=== PATIENT | male | born 1990 | race Two or more races ===

== ENCOUNTER 2020-02-01 11:32 | Emergency (ER) | payer OTHER ==
[~2020-02-01] VITALS: Ht 165.1 cm; Wt 72.6 kg
[2020-02-01 11:43] VITALS: BP 141/96
--- NOTE | 2020-02-01 11:43 | NUR ---
ED Nurse Note: PT walked in to ed for c/o abd pain with nausea and vomiting x 3 days. pt also reports having "panick attack".
[2020-02-01] MEDS ORDERED: Ketorolac 30mg Inj IV ONE (12:15)
[2020-02-01] MEDS ORDERED: LORazepam Inj 2mg/ml 1ml IV ONE (12:15)
--- NOTE | 2020-02-01 12:15 | NUR ---
ED Nurse Note: urine and blood sample collected and sent to lab
--- NOTE | 2020-02-01 12:22 | NUR ---
ED Nurse Note: All due medication given, pt tolerated well. will continue to monitor.
[2020-02-01 12:49] LABS: BASOPHILS % (AUTO) 1.1 % (0.0-2.0); EOSINOPHILS % (AUTO) 1.3 % (0.0-3.0); HEMATOCRIT 47.1 % (42.0-52.0); HEMOGLOBIN 15.9 G/DL (14.2-18.0); LYMPHOCYTES % (AUTO) 33.6 % (20.0-45.0); MEAN CORPUSCULAR VOLUME 98 FL (80-99); MONOCYTES % (AUTO) 12.2 % (1.0-10.0); NEUTROPHILS % (AUTO) 51.8 % (45.0-75.0); PLATELET COUNT 367 K/UL (150-450); RED BLOOD COUNT 4.83 M/UL (4.70-6.10); RED CELL DISTRIBUTION WIDTH 13.4 % (11.6-14.8); WHITE BLOOD COUNT 6.7 K/UL (4.8-10.8)
[2020-02-01 12:51] LABS: APPEARANCE,URINE CLEAR; BILIRUBIN, URINE NEGATIVE (NEGATIVE); COLOR,URINE PALE YELLOW; GLUCOSE, URINE (UA) NEGATIVE (NEGATIVE); KETONES,URINE NEGATIVE (NEGATIVE); LEUKOCYTE ESTERASE ,URINE NEGATIVE (NEGATIVE); NITRITE,URINE NEGATIVE (NEGATIVE); PH,URINE 6.5 (4.5-8.0); PROTEIN,URINE NEGATIVE (NEGATIVE); UROBILINOGEN,URINE NORMAL MG/DL (0.0-1.0)
[2020-02-01 13:11] LABS: ANION GAP 9 mmol/L (5-15); BLOOD UREA NITROGEN 12 mg/dL (7-18); CALCIUM 9.4 MG/DL (8.5-10.1); CARBON DIOXIDE 29 MMOL/L (21-32); CHLORIDE 98 MMOL/L (98-107); CREATININE 1.2 MG/DL (0.55-1.30); POTASSIUM 3.9 MMOL/L (3.5-5.1); SODIUM 136 MMOL/L (136-145)
[2020-02-01 13:15] LABS: ALANINE AMINOTRANSFERASE 22 U/L (12-78); ALBUMIN 4.6 G/DL (3.4-5.0); ALBUMIN/GLOBULIN RATIO 1.5 (1.0-2.7); ALKALINE PHOSPHATASE 77 U/L (46-116); ASPARTATE AMINO TRANSFERASE 28 U/L (15-37); BILIRUBIN,TOTAL 0.5 MG/DL (0.2-1.0)
[2020-02-01] MEDS ORDERED: ATIVAN1 MG ORAL (14:04)
[2020-02-01] MEDS ORDERED: FAMOTIDINE20 MG ORAL (14:04)
[2020-02-01] MEDS ORDERED: ONDANSETRON ODT4 MG BC (14:04)
[2020-02-01 14:09] VITALS: BP 130/84
--- NOTE | 2020-02-01 14:09 | NUR ---
ER DISCHARGE NOTE: Patient is cleared to be discharged per ERMD, pt is aox4, on room air, with stable vital signs. pt was given dc and prescription instructions, pt was able to verbalize understanding, pt id band and iv site removed without complications. pt is able to ambulate with steady gait. pt took all belongings.
--- NOTE | 2020-02-01 14:57 | Emergency Room Report ---
History of Present Illness General Chief Complaint: Abdominal Pain Source: Patient Present Illness HPI 29-year-old male presents ED for evaluation. Any of abdominal pain for the last 3 days. Epigastric, sharp, 7 out of 10, nonradiating. Denies chest pain or shortness of breath. States he also feels anxious. 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 States his last use was about 1 month ago. No other aggravating relieving factors. 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 Patient History Past Medical History: none Past Surgical History: none Pertinent Family History: none Social History: Denies: smoking, alcohol use, drug use Immunizations: UTD Reviewed Nursing Documentation: PMH: Agreed; PSxH: Agreed Review of Systems All Other Systems: negative except mentioned in HPI Physical Exam Vital Signs Date Time Temp Pulse Resp B/P (MAP) Pulse Ox O2 Delivery O2 Flow Rate FiO2 02/01/20 11:38 98.4 68 19 141/96 (111) 98 Room Air Sp02 EP Interpretation: reviewed, normal General Appearance: alert, GCS 15, non-toxic, mild distress Head: normocephalic, atraumatic Eyes: bilateral eye normal inspection, bilateral eye PERRL ENT: hearing grossly normal, normal pharynx, no angioedema, normal voice Neck: full range of motion, supple/symm/no masses Respiratory: chest non-tender, lungs clear, normal breath sounds, speaking full sentences Cardiovascular #1: regular rate, rhythm, no edema Cardiovascular #2: 2+ carotid (R), 2+ carotid (L), 2+ radial (R), 2+ radial (L), 2+ dorsalis pedis (R), 2+ dorsalis pedis (L) Gastrointestinal: normal bowel sounds, soft, non-distended, no guarding, no rebound, tenderness Rectal: deferred Genitourinary: normal inspection, no CVA tenderness Musculoskeletal: back normal, normal range of motion, gait/station normal, non- tender Neurologic: alert, motor strength/tone normal, oriented x3, sensory intact, responsive, speech normal Psychiatric: judgement/insight normal, memory normal, mood/affect normal, no suicidal/homicidal ideation Reflexes: 3+ bicep (R), 3+ bicep (L), 3+ tricep (R), 3+ tricep (L), 3+ knee (R), 3+ knee (L) Skin: no rash Lymphatic: no adenopathy Medical Decision Making Diagnostic Impression: Primary Impression: Gastritis Qualified Codes: K29.00 - Acute gastritis without bleeding Additional Impression: Anxiety ER Course Hospital Course 29-year-old M presents to ED with epigastric pain with N/V. differential diagnosis: gastritis, SBO, cholecystits Clinical course Patient placed on stretcher. On bus driver/monitor. After initial history and physical I ordered labs, IV fluids, Pepcid, Zofran, Ativan Labs - no leukocytosis, no electrolyte abnormalities, LFTs normal, On reassessment patient states he feels better. Discussed findings with patient. Patient had been prescribed Wellbutrin and trazodone. I will prescribe low-dose Ativan for a few days. Safe for discharge close outpatient follow-up. I will provide referrals I feel this is a highly complex case requiring extensive working including EKG/Rhythm strip, Xray/CT/US, Blood/urine lab work, repeat exams while in ED, and administration of strong opiates/narcotics for pain control, admission to hospital or close patient follow up. Diagnosis - gastritis, anxiety Stable and discharged to home with prescriptions for Pepcid, Zofran, Ativan. Followup with PMD. Return to ED if symptoms recur or worsen Laboratory Tests Test 02/01/20 12:10 White Blood Count 6.7 K/UL (4.8-10.8) Red Blood Count 4.83 M/UL (4.70-6.10) Hemoglobin 15.9 G/DL (14.2-18.0) Hematocrit 47.1 % (42.0-52.0) Mean Corpuscular Volume 98 FL (80-99) Mean Corpuscular Hemoglobin 32.9 PG (27.0-31.0) H Mean Corpuscular Hemoglobin Concent 33.7 G/DL (32.0-36.0) Red Cell Distribution Width 13.4 % (11.6-14.8) Platelet Count 367 K/UL (150-450) Mean Platelet Volume 7.0 FL (6.5-10.1) Neutrophils (%) (Auto) 51.8 % (45.0-75.0) Lymphocytes (%) (Auto) 33.6 % (20.0-45.0) Monocytes (%) (Auto) 12.2 % (1.0-10.0) H Eosinophils (%) (Auto) 1.3 % (0.0-3.0) Basophils (%) (Auto) 1.1 % (0.0-2.0) Urine Color Pale yellow Urine Appearance Clear Urine pH 6.5 (4.5-8.0) Urine Specific [place] 1.005 (1.005-1.035) Urine Protein Negative (NEGATIVE) Urine Glucose (UA) Negative (NEGATIVE) Urine Ketones Negative (NEGATIVE) Urine Blood Negative (NEGATIVE) Urine Nitrite Negative (NEGATIVE) Urine Bilirubin Negative (NEGATIVE) Urine Urobilinogen Normal MG/DL (0.0-1.0) Urine Leukocyte Esterase Negative (NEGATIVE) Sodium Level 136 MMOL/L (136-145) Potassium Level 3.9 MMOL/L (3.5-5.1) Chloride Level 98 MMOL/L (98-107) Carbon Dioxide Level 29 MMOL/L (21-32) Anion Gap 9 mmol/L (5-15) Blood Urea Nitrogen 12 mg/dL (7-18) Creatinine 1.2 MG/DL (0.55-1.30) Estimat Glomerular Filtration Rate > 60 mL/min (>60) Glucose Level 92 MG/DL (74-106) Calcium Level 9.4 MG/DL (8.5-10.1) Total Bilirubin 0.5 MG/DL (0.2-1.0) Aspartate Amino Transf (AST/SGOT) 28 U/L (15-37) Alanine Aminotransferase (ALT/SGPT) 22 U/L (12-78) Alkaline Phosphatase 77 U/L (46-116) Total Protein 7.7 G/DL (6.4-8.2) Albumin 4.6 G/DL (3.4-5.0) Globulin 3.1 g/dL Albumin/Globulin Ratio 1.5 (1.0-2.7) Lipase 114 U/L (73-393) Last Vital Signs Date Time Temp Pulse Resp B/P (MAP) Pulse Ox O2 Delivery O2 Flow Rate FiO2 02/01/20 14:09 98.0 76 18 130/84 99 Room Air Status: improved Disposition: HOME, SELF-CARE Condition: Stable Scripts Lorazepam* (ATIVAN*) 1 Mg Tablet 1 MG ORAL THREE TIMES A DAY, #10 TAB Prov: Luis Antonio Cervantes MD 02/01/20 Ondansetron Odt* (ZOFRAN ODT*) 4 Mg Tab.rapdis 4 MG BC EVERY 6 HOURS PRN for Nausea & Vomiting, #10 TAB 0 Refills Prov: Luis Antonio Cervantes MD 02/01/20 Famotidine* (Pepcid 20mg tablet*) 20 Mg Tablet 20 MG ORAL DAILY for Gerd, #30 TAB 0 Refills Prov: Luis Antonio Cervantes MD 02/01/20 Referrals: NON PHYSICIAN (PCP) [facility] Patient Instructions: Gastritis, Adult, [id number] Luis Antonio Cervantes MD Feb 01, 2020 14:56
== END 2020-02-01 14:09 | disposition home or self-care (01) ==
LOC: EMR 12:18
DX: K29.00 Acute gastritis without bleeding (principal); F41.9 Anxiety disorder, unspecified
CPT/HCPCS: 36415; 80053; 81003; 83690; 85025; 96361; 96374; 96375; J1885; J2405; J7030; S0028; Z7502; 99284

== ENCOUNTER 2020-03-22 11:26 | Emergency (ER) | payer OTHER ==
[~2020-03-22] VITALS: Ht 165.1 cm; Wt 74.4 kg
[~2020-03-22 11:26] MED LIST: ATIVAN1 MG ORAL; FAMOTIDINE20 MG ORAL; ONDANSETRON ODT4 MG BC
[2020-03-22 11:45] VITALS: BP 123/80
[2020-03-22] MEDS ORDERED: Mylanta II UD 30ml ORAL ONE (11:45)
[2020-03-22] MEDS ORDERED: Dicyclomine HCl 10mg/5ml oral soln ORAL ONE (11:45)
[2020-03-22] MEDS ORDERED: Lidocaine 2% Visc 15ml soln ORAL ONE (11:45)
--- NOTE | 2020-03-22 11:45 | NUR ---
ED Nurse Note: Pt walked into ED for upper abominal pain 6/10 and diarrhea for 70 days. He also has nausea but no vomiting. He is alert amnd orientedx4, ambulatory. IV established and blood sent to lab. Urine sent.
--- NOTE | 2020-03-22 12:02 | Emergency Room Report ---
History of Present Illness General Chief Complaint: Abdominal Pain Source: Patient Present Illness HPI Disclaimer: Please note that this report is being documented using [employer] technology. This can lead to erroneous entry secondary to incorrect interpretation by the dictating instrument. HPI: 29-year-old male presents for evaluation of abdominal pain. History of gastritis. Reports 2 months of persistent abdominal pain and cramping. Sometimes worse with eating sometimes better. Denies fever, chills, vomiting, diarrhea. He reports nausea. History of alcohol abuse but in remission. He uses Motrin daily. Appointment to see his environmental resource specialist next week for evaluation of possible ulcers. Does not currently take antacids. Using only Maalox for symptomatic relief. Denies chest pain, palpitations, shortness of breath, cough, URI symptoms, fever or chills. 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 EOMI. Cardiovascular: RRR. S1 and S2 normal. No murmur appreciated Resp: Normal work of breathing. No cough, wheezing or crackles appreciated Abdomen: Abdomen is soft, nondistended. Mild tenderness in the epigastrium. No guarding, no rebound. No tenderness in left or right upper quadrants or in the lower abdomen. Skin: Intact. No abrasions, laceration or rash over the exposed skin MSK: Normal tone and bulk. Moving all extremities. No obvious deformity. Neuro: Awake and alert. Mentating appropriately. Medical Decision Making Diagnostic Impression: Primary Impression: Gastritis ER Course 29-year-old male presents for evaluation of abdominal pain. Differential includes was not limited to gastritis, gastroenteritis, pancreatitis, cholecystitis, peptic ulcer disease, duodenal ulcer among others. Given the patient's history of alcohol abuse and daily NSAID use suspect gastritis. Labs were obtained have returned within normal limits. No major electrolyte abnormalities, renal function is within normal limits, no evidence of urinary tract infection and lipase is within normal limits. No evidence of pancreatitis. Belly remains soft; no indication for advanced imaging at this time. Patient feeling better after receiving a GI cocktail and IV Pepcid. He has been prescribed Pepcid in the past. We will continue this however will add omeprazole and the patient will be referred to his environmental resource specialist at his s tanding appointment next week for further evaluation and management. Otherwise well-appearing and stable for outpatient follow-up. Instructed to not use Motrin any longer. Discussed reasons to return to the ER. He understands and agrees with this treatment plan. Laboratory Tests Test 03/22/20 11:45 White Blood Count 7.1 K/UL (4.8-10.8) Red Blood Count 4.89 M/UL (4.70-6.10) Hemoglobin 16.2 G/DL (14.2-18.0) Hematocrit 44.8 % (42.0-52.0) Mean Corpuscular Volume 92 FL (80-99) Mean Corpuscular Hemoglobin 33.1 PG (27.0-31.0) H Mean Corpuscular Hemoglobin Concent 36.1 G/DL (32.0-36.0) H Red Cell Distribution Width 14.4 % (11.6-14.8) Platelet Count 357 K/UL (150-450) Mean Platelet Volume 6.8 FL (6.5-10.1) Neutrophils (%) (Auto) 42.4 % (45.0-75.0) L Lymphocytes (%) (Auto) 43.4 % (20.0-45.0) Monocytes (%) (Auto) 10.3 % (1.0-10.0) H Eosinophils (%) (Auto) 2.6 % (0.0-3.0) Basophils (%) (Auto) 1.4 % (0.0-2.0) Urine Color Pale yellow Urine Appearance Clear Urine pH 5 (4.5-8.0) Urine Specific [place] 1.015 (1.005-1.035) Urine Protein Negative (NEGATIVE) Urine Glucose (UA) Negative (NEGATIVE) Urine Ketones Negative (NEGATIVE) Urine Blood Negative (NEGATIVE) Urine Nitrite Negative (NEGATIVE) Urine Bilirubin Negative (NEGATIVE) Urine Urobilinogen Normal MG/DL (0.0-1.0) Urine Leukocyte Esterase Negative (NEGATIVE) Sodium Level 138 MMOL/L (136-145) Potassium Level 4.0 MMOL/L (3.5-5.1) Chloride Level 101 MMOL/L (98-107) Carbon Dioxide Level 29 MMOL/L (21-32) Anion Gap 8 mmol/L (5-15) Blood Urea Nitrogen 15 mg/dL (7-18) Creatinine 1.0 MG/DL (0.55-1.30) Estimated Glomerular Filtration Rate > 60 mL/min (>60) Glucose Level 68 MG/DL (74-106) L Calcium Level 8.8 MG/DL (8.5-10.1) Total Bilirubin 0.3 MG/DL (0.2-1.0) Aspartate Amino Transferase (AST) 23 U/L (15-37) Alanine Aminotransferase (ALT) 20 U/L (12-78) Alkaline Phosphatase 81 U/L (46-116) Total Protein 8.0 G/DL (6.4-8.2) Albumin 4.0 G/DL (3.4-5.0) Globulin 4.0 g/dL Albumin/Globulin Ratio 1.0 (1.0-2.7) Lipase 101 U/L (73-393) Last Vital Signs Date Time Temp Pulse Resp B/P (MAP) Pulse Ox O2 Delivery O2 Flow Rate FiO2 03/22/20 11:29 98.2 73 17 128/82 (97) 97 Room Air Disposition: HOME, SELF-CARE Condition: Improved Scripts Omeprazole Magnesium (PRILOSEC OTC) 20 Mg Tablet.dr 20 MG ORAL DAILY for 30 Days, #3 TAB Prov: Femi Dahl MD 03/22/20 Famotidine* (Pepcid 20mg tablet*) 20 Mg Tablet 20 MG ORAL DAILY for Gerd, #30 TAB 0 Refills Prov: Femi Dahl MD 03/22/20 Femi Dahl MD Mar 22, 2020 12:02
[2020-03-22 12:17] LABS: APPEARANCE,URINE CLEAR; BILIRUBIN, URINE NEGATIVE (NEGATIVE); COLOR,URINE PALE YELLOW; GLUCOSE, URINE (UA) NEGATIVE (NEGATIVE); KETONES,URINE NEGATIVE (NEGATIVE); LEUKOCYTE ESTERASE ,URINE NEGATIVE (NEGATIVE); NITRITE,URINE NEGATIVE (NEGATIVE); PH,URINE 5 (4.5-8.0); PROTEIN,URINE NEGATIVE (NEGATIVE); UROBILINOGEN,URINE NORMAL MG/DL (0.0-1.0)
[2020-03-22] MEDS ORDERED: PRILOSEC OTC20 MG ORAL (12:18)
[2020-03-22] MEDS ORDERED: FAMOTIDINE20 MG ORAL (12:18)
[2020-03-22 12:24] LABS: BASOPHILS % (AUTO) 1.4 % (0.0-2.0); EOSINOPHILS % (AUTO) 2.6 % (0.0-3.0); HEMATOCRIT 44.8 % (42.0-52.0); HEMOGLOBIN 16.2 G/DL (14.2-18.0); LYMPHOCYTES % (AUTO) 43.4 % (20.0-45.0); MEAN CORPUSCULAR VOLUME 92 FL (80-99); MONOCYTES % (AUTO) 10.3 % (1.0-10.0); NEUTROPHILS % (AUTO) 42.4 % (45.0-75.0); PLATELET COUNT 357 K/UL (150-450); RED BLOOD COUNT 4.89 M/UL (4.70-6.10); RED CELL DISTRIBUTION WIDTH 14.4 % (11.6-14.8); WHITE BLOOD COUNT 7.1 K/UL (4.8-10.8)
[2020-03-22 12:37] LABS: ANION GAP 8 mmol/L (5-15); BLOOD UREA NITROGEN 15 mg/dL (7-18); CALCIUM 8.8 MG/DL (8.5-10.1); CARBON DIOXIDE 29 MMOL/L (21-32); CHLORIDE 101 MMOL/L (98-107); SODIUM 138 MMOL/L (136-145)
[2020-03-22 12:42] LABS: ALANINE AMINOTRANSFERASE 20 U/L (12-78); ALKALINE PHOSPHATASE 81 U/L (46-116); ASPARTATE AMINO TRANSFERASE 23 U/L (15-37); BILIRUBIN,TOTAL 0.3 MG/DL (0.2-1.0)
--- NOTE | 2020-03-22 12:57 | NUR ---
ER DISCHARGE NOTE: Patient is cleared to be discharged per ERMD, pt is aox4, on room air, with stable vital signs. pt was given dc and prescription instructions, pt was able to verbalize understanding, pt id band and iv site removed without complications. pt is able to ambulate with steady gait. pt took all belongings. Pt educated on gastritis and f/u.
[2020-03-22 12:58] VITALS: BP 126/72
== END 2020-03-22 12:59 | disposition home or self-care (01) ==
LOC: EMR 11:45
DX: K29.70 Gastritis, unspecified, without bleeding (principal); F10.21 Alcohol dependence, in remission
CPT/HCPCS: 36415; 80053; 81003; 83690; 85025; 96374; S0028; Z7502; 99284